=== PATIENT | female | born 1990 | race Caucasian/White ===

== ENCOUNTER 2018-09-01 17:56 | Emergency (ER) | payer OTHER ==
[~2018-09-01] VITALS: Ht 167.6 cm; Wt 94.2 kg
[2018-09-01 17:59] VITALS: Ht 167.6 cm; Wt 94.2 kg
[2018-09-01] MEDS ORDERED: SOD CHLORIDE 0.9% 1,000 ML IV STA (20:08)
[2018-09-01] MEDS ORDERED: morphine 4 MG/ML VIAL IV STA (20:08)
[2018-09-01] MEDS ORDERED: ONDANSETRON 4 MG INJ IV STA (20:08)
[2018-09-01] MEDS ORDERED: FAMOTIDINE 20 MG INJ IV ONE (20:30)
[2018-09-02] MEDS ORDERED: ONDA4TAB14 PO (00:12)
[2018-09-02] MEDS ORDERED: HYDR-4011 PO (00:12)
[2018-09-02] MEDS ORDERED: FAMO-96 PO (00:12)
[2018-09-02] MEDS ORDERED: CEPH-443 PO (00:12)
[2018-09-02 00:45] VITALS: BP 117/76; PULSE 70; RESP 19
--- NOTE | 2018-09-02 04:27 | ERD ---
ER Documentation Chief Complaint Chief Complaint Complains of nausea with vomiting x 4 days HPI 27-year-old female patient with no significant past medical history presents to ED complaining of nausea, vomiting, right lower quadrant abdominal pain. Patient reports that her last menstruation was on August 27, 2018, however this is questionable since patient is currently , she believes that it may have been bleeding in her . Denies any fever, chills, nausea, vomiting, diarrhea, neck stiffness. ROS All systems reviewed and are negative except as per history of present illness. Medications Home Meds Active Scripts Cephalexin* (Keflex*) 500 Mg Capsule, 500 MG PO QID for 7 Days, CAP Prov:JANETTE OLIVERA PA-C 09/02/18 Ondansetron (Ondansetron Odt) 4 Mg Tab.rapdis, 4 MG PO Q6H PRN for NAUSEA AND/OR VOMITING, #10 TAB Prov:JANETTE OLIVERA PA-C 09/02/18 Hydrocodone/Acetaminophen ([place] 5-325 Tablet) 1 Each Tablet, 1 TAB PO Q6H PRN for PAIN, #7 TAB Prov:JANETTE OLIVERA PA-C 09/02/18 Famotidine* (Pepcid*) 20 Mg Tablet, 20 MG PO BID, #20 TAB Prov:JANETTE OLIVERA PA-C 09/02/18 Allergies Allergies: Coded Allergies: No Known Allergy (Unverified , 09/01/18) PMhx/Soc Medical and Surgical Hx: pt denies Medical Hx, pt denies Surgical Hx Hx Alcohol Use: Yes (socially) Hx Substance Use: Yes (marijuana socially) Hx Tobacco Use: No Smoking Status: Former smoker Physical Exam Vitals Vital Signs Date Temp Pulse Resp B/P (MAP) Pulse Ox O2 O2 Flow FiO2 Time Delivery Rate 09/02/18 98.1 70 19 117/76 98 Room Air 00:45 (90) 09/01/18 98.5 91 20 128/84 100 17:59 (99) Physical Exam Const: Aec-[id number]-bekoyqzht, well-nourished. In no acute distress. Head: Atraumatic, normocephalic Eyes: Normal Conjunctiva without injection. No purulent discharge. ENT: Normal external ear, nose. Moist oropharynx without tonsillar exudates. Non-erythematous pharynx. Uvula midline. No drooling. No trismus. Neck: No cervical midline tenderness. Full range of motion. No meningismus. No cervical lymphadenopathy. No JVD. Resp: Clear to auscultation bilaterally. No wheezing, rhonchi, rales, or crackles. No accessory muscle use. No retractions. Cardio: Regular rate and rhythm. No murmurs, rubs or gallops. Abd: Soft, right upper quadrant abdominal tenderness, non distended. Normal bowel sounds. No palpable masses. No rebound tenderness. No guarding. Negative McBurney's point. Negative psoas sign. Negative obturator sign. Skin: No petechiae or rashes Back: No midline tenderness. No CVA tenderness. Ext: No cyanosis, or edema Neur: Awake and alert. Normal gait. Normal coordination. Psych: Normal Mood and Affect Result Diagram: 09/01/18204509/01/182314 Results 24 hrs Laboratory Tests Test 09/01/18 20:19 09/01/18 20:20 09/01/18 20:46 09/01/18 23:15 POC Beta HCG, NEGATIVE Qualitative Urine Color YELLOW Urine Clarity CLOUDY Urine pH 7.0 Urine Specific 1.017 [place] Urine Ketones 1+ mg/dL Urine Nitrite NEGATIVE mg/dL Urine Bilirubin NEGATIVE mg/dL Urine NEGATIVE mg/dL Urobilinogen Urine Leukocyte 3+ Sobeida/ul Esterase Urine 2 /HPF Microscopic RBC Urine 2 /HPF Microscopic WBC Urine Squamous MANY /HPF Epithelial Cell s Urine Bacteria FEW /HPF Urine Mucus FEW /HPF Urine 2+ mg/dL Hemoglobin Urine Glucose NEGATIVE mg/dL Urine Total NEGATIVE mg/dl Protein White Blood 10.6 10^3/ul Count Red Blood Count 4.47 10^6/ul Hemoglobin 14.1 g/dl Hematocrit 42.6 % Mean 95.3 fl Corpuscular Volume Mean 31.5 pg Corpuscular Hemoglobin Mean 33.1 g/dl Corpuscular Hemoglobin Conc ent Red Cell 13.5 % Distribution Width Platelet Count 377 10^3/UL Mean Platelet 8.9 fl Volume Immature 0.800 % Granulocytes % Neutrophils % 73.1 % Lymphocytes % 17.9 % Monocytes % 6.3 % Eosinophils % 1.1 % Basophils % 0.8 % Nucleated Red 0.0 /100WBC Blood Cells % Immature 0.080 10^3/ul Granulocytes # Neutrophils # 7.7 10^3/ul Lymphocytes # 1.9 10^3/ul Monocytes # 0.7 10^3/ul Eosinophils # 0.1 10^3/ul Basophils # 0.1 10^3/ul Nucleated Red 0.0 10^3/ul Blood Cells # Sodium Level 140 mmol/L Potassium Level 4.7 mmol/L Chloride Level 103 mmol/L Carbon Dioxide 27 mmol/L Level Anion Gap 10 Blood Urea 7 mg/dl Nitrogen Creatinine 0.50 mg/dl Est Glomerular > 60 mL/min Filtrat Rate mL/min Glucose Level 88 mg/dl Calcium Level 8.3 mg/dl Total Bilirubin 0.3 mg/dl Direct 0.00 mg/dl Bilirubin Indirect 0.3 mg/dl Bilirubin Aspartate Amino 19 IU/L Transf (AST/SGO T) Alanine 24 IU/L Aminotransferas e (ALT/SGPT) Alkaline 63 IU/L Phosphatase Total Protein 6.8 g/dl Albumin 3.8 g/dl Globulin 3.00 g/dl Albumin/Globuli 1.26 n Ratio Lipase 58 U/L Current Medications Medications Dose Sig/Michael Start Time Status Last (Trade) Ordered Route PRN Stop Time Admin Dose Reason Admin Sodium 1,000 ml @ Q1H STAT 09/01/18 DC 09/01/18 Chloride 1,000 mls/hr IV 20:08 20:30 09/01/18 21:07 Morphine 4 mg ONCE STAT 09/01/18 DC 09/01/18 Sulfate IV 20:08 20:30 (morphine) 09/01/18 20:10 Ondansetron 4 mg ONCE STAT 09/01/18 DC 09/01/18 HCl (Zofran IV 20:08 20:29 Inj) 09/01/18 20:10 Famotidine 20 mg ONCE ONCE 09/01/18 DC 09/01/18 (Pepcid Iv) IV 20:30 20:30 09/01/18 20:31 Procedures/MDM 27-year-old female patient with no significant past medical history presents the ED complaining of nausea, vomiting that started 4 days ago. Patient is afebrile and nontoxic-appearing. Patient was further worked up with CBC, CMP, lipase, UA, urine , gallbladder ultrasound. Patient's pain and symptoms have improved after treatment with 1 L of saline, 20 mg IV famotidine, 4 mg IV Zofran, 4 mg IV morphine. CBC: No leukocytosis. No e/o of systemic infection. No e/o anemia. CMP: No e/o severe acidosis, alkalosis, renal failure, diabetic ketoacidosis, liver disease Lipase within normal limits. Urine: 3+ leukocyte esterase, no nitrites, 2+ hematuria. Urine : Negative PROCEDURE: US Abdomen Limited. CLINICAL INDICATION: Abdominal pain TECHNIQUE: Multiple real-time images were acquired of the patient's gallbladder utilizing a high resolution transducer. COMPARISON: None FINDINGS: Liver: Normal in size measuring 13.6 cm. Normal echogenicity. No focal lesions. Gallbladder: Multiple intraluminal gallstones with posterior acoustic shadowing. No pericholecystic fluid. No wall thickening. Biliary tract: No intra- or extrahepatic ductal dilation. The common bile duct measures 4 mm in maximal dimension. Pancreas: Poorly visualized due to excessive bowel gas. Right Kidney: Normal in size measuring 9.8 cm. Normal echogenicity. No dilatation of the pelvicaliceal system. No areas of increased echogenicity to suggest nephrolithiasis. No solid renal mass. Other: No free fluid is identified. IMPRESSION: Cholelithiasis without sonographic evidence of acute cholecystitis. Patient has cholelithiasis. Low suspicion for ectopic , ovarian torsion, gastritis, GERD, peptic ulcer disease, cholecystitis, choled ocholithiasis, cholangitis, pancreatitis, appendicitis, bowel obstruction, ileus, volvulus, nephrolithiasis, pyelonephritis, hepatitis, perforated viscus, diverticulitis, strangulated/incarcerated hernia, DKA, acute abdomen, mesenteric ischemia or other emergent conditions. Diagnosis: Cholelithiasis, Urinary tract infection Discharge medications: [place], famotidine, Zofran, Keflex Follow up with primary care physician in 1-2 days. Instructed patient to return to the ED sooner for any worsening symptoms. Patient's questions were answered. Patient is hemodynamically stable. Patient understood and agreed with discharge plan. Patient discharged stable. Disclaimer: Inadvertent spelling and grammatical errors are likely due to EHR/dictation software use and do not reflect on the overall quality of patient care. Also, please note that the electronic time recorded on this note does not necessarily reflect the actual time of the patient encounter. Departure Diagnosis: Primary Impression: Cholelithiasis Cholelithiasis location: gallbladder Cholecystitis presence: without cholecystitis Biliary obstruction: without biliary obstruction Qualified Codes: K80.20 - Calculus of gallbladder without cholecystitis without obstruction Additional Impression: Urinary tract infection Urinary tract infection type: site unspecified Hematuria presence: with hematuria Qualified Codes: N39.0 - Urinary tract infection, site not specified; R31.9 - Hematuria, unspecified Condition: Stable Patient Instructions: Urinary Tract Infections in Women, Gallstones Referrals: [facility] YOU HAVE RECEIVED A MEDICAL SCREENING EXAM AND THE RESULTS INDICATE THAT YOU DO NOT HAVE A CONDITION THAT REQUIRES URGENT TREATMENT IN THE EMERGENCY DEPARTMENT. FURTHER EVALUATION AND TREATMENT OF YOUR CONDITION CAN WAIT UNTIL YOU ARE SEEN IN YOUR DOCTORS OFFICE WITHIN THE NEXT 1-2 DAYS. IT IS YOUR RESPONSIBILITY TO MAKE AN APPOINTMENT FOR FOLOW-UP CARE. IF YOU HAVE A PRIMARY DOCTOR --you should call your primary doctor and schedule an appointment IF YOU DO NOT HAVE A PRIMARY DOCTOR YOU CAN CALL OUR PHYSICIAN REFERRAL HOTLINE AT IF YOU CAN NOT AFFORD TO SEE A PHYSICIAN YOU CAN CHOSE FROM THE FOLLOWING [facility] [address] [facility] [address] [facility] [facility] [address] [facility] [address] [facility] [address] [facility]. [facility]. [address] [facility] [facility] YOU HAVE RECEIVED A MEDICAL SCREENING EXAM AND THE RESULTS INDICATE THAT YOU DO NOT HAVE A CONDITION THAT REQUIRES URGENT TREATMENT IN THE EMERGENCY DEPARTMENT. FURTHER EVALUATION AND TREATMENT OF YOUR CONDITION CAN WAIT UNTIL YOU ARE SEEN IN YOUR DOCTORS OFFICE WITHIN THE NEXT 1-2 DAYS. IT IS YOUR RESPONSIBILITY TO MAKE AN APPOINTMENT FOR FOLOW-UP CARE. IF YOU HAVE A PRIMARY DOCTOR --you should call your primary doctor and schedule and appointment IF YOU DO NOT HAVE A PRIMARY DOCTOR YOU CAN CALL OUR PHYSICIAN REFERRAL HOTLINE AT . IF YOU CAN NOT AFFORD TO SEE A PHYSICIAN YOU CAN CHOSE FROM THE FOLLOWING [facility] INSTITUTIONS: [facility] [address] [place] [address] [facility] [address] [place] [address] [facility] [address] [place] [address] [facility]CIALT[facility] Additional Instructions: Call your primary care doctor TOMORROW for an appointment during the next 2-3 days for a referral to see a general surgeon.See the doctor sooner or return here if your condition worsens before your appointment time. You have been given a medicine which may cause drowsiness.DO NOT DRIVE OR OPERATE DANGEROUS MACHINERY while taking this medicine! JANETTE OLIVERA PA-C Sep 02, 2018 04:27
== END 2018-09-02 00:47 | disposition home or self-care (01) ==
LOC: FTE 17:56
DX: K80.20 Calculus of gallbladder without cholecystitis without obstruction (principal); N39.0 Urinary tract infection, site not specified
CPT/HCPCS: 76705; 80053; 81001; 81025; 83690; 85025; 96361; 96374; 96375; J2270; J2405; J7030; Z7502; Z7610

== ENCOUNTER 2018-09-09 13:26 | Inpatient (IN) | payer OTHER ==
[~2018-09-09] VITALS: Ht 152.4 cm; Wt 89.5 kg
[~2018-09-09 13:26] MED LIST: CEPH-443 PO; FAMO-96 PO; HYDR-4011 PO; ONDA4TAB14 PO
[2018-09-09] MEDS ORDERED: ONDANSETRON 4 MG INJ IV STA (13:53)
[2018-09-09] MEDS ORDERED: SOD CHLORIDE 0.9% 1,000 ML IV STA (13:53)
[2018-09-09] MEDS ORDERED: HYDROmorphONE 1 MG/ML SYG IV STA (13:53)
--- NOTE | 2018-09-09 13:54 | ERD ---
ER Documentation Chief Complaint Chief Complaint bib self, cc: abd. pain from recent dx of gallbladder stones, n/v sincemorn HPI 27-year-old female, recently diagnosed with gallstones, presents to the emergency department, complaining of 6 hours with sudden onset of right upper quadrant abdominal pain, dull, constant, 8/10, associated with nausea and vomiting. The patient had a heavy fatty meal last night. She currently, denies fevers, no chills, no diarrhea or constipation. ROS All systems reviewed and are negative except as per history of present illness. Medications Home Meds Active Scripts Cephalexin* (Keflex*) 500 Mg Capsule, 500 MG PO QID for 7 Days, CAP Prov:JANETTE OLIVERA PA-C 09/02/18 Ondansetron (Ondansetron Odt) 4 Mg Tab.rapdis, 4 MG PO Q6H PRN for NAUSEA AND/OR VOMITING, #10 TAB Prov:JANETTE OLIVERA PA-C 09/02/18 Hydrocodone/Acetaminophen ([place] 5-325 Tablet) 1 Each Tablet, 1 TAB PO Q6H PRN for PAIN, #7 TAB Prov:JANETTE OLIVERA PA-C 09/02/18 Famotidine* (Pepcid*) 20 Mg Tablet, 20 MG PO BID, #20 TAB Prov:JANETTE OLIVERA PA-C 09/02/18 Allergies Allergies: Coded Allergies: No Known Allergy (Unverified , 09/01/18) PMhx/Soc Hx Alcohol Use: Yes (socially) Hx Substance Use: Yes (marijuana socially) Hx Tobacco Use: No Physical Exam Vitals Vital Signs Date Temp Pulse Resp B/P (MAP) Pulse Ox O2 O2 Flow FiO2 Time Delivery Rate 09/09/18 98.3 104 19 139/86 100 13:42 (103) Physical Exam Const: Moderate distress due to pain, vital signs stable. Head: Atraumatic Eyes: Normal Conjunctiva ENT: Normal External Ears, Nose and Mouth. Neck: Full range of motion. No meningismus. Resp: Clear to auscultation bilaterally Cardio: Regular rate and rhythm, no murmurs Abd: Soft, non tender, non distended. Normal bowel sounds Skin: No petechiae or rashes Back: No midline or flank tenderness Ext: No cyanosis, or edema Neur: Awake and alert Psych: Normal Mood and Affect Result Diagram: 09/09/18 1420 09/09/18 1420 Results 24 hrs Laboratory Tests Test 09/09/18 14:20 09/09/18 16:52 White Blood Count 11.6 10^3/ul Red Blood Count 4.32 10^6/ul Hemoglobin 13.6 g/dl Hematocrit 41.4 % Mean Corpuscular Volume 95.8 fl Mean Corpuscular Hemoglobin 31.5 pg Mean Corpuscular Hemoglobin Concent 32.9 g/dl Red Cell Distribution Width 13.6 % Platelet Count 373 10^3/UL Mean Platelet Volume 9.0 fl Immature Granulocytes % 0.600 % Neutrophils % 81.4 % Lymphocytes % 12.6 % Monocytes % 3.7 % Eosinophils % 1.0 % Basophils % 0.7 % Nucleated Red Blood Cells % 0.0 /100WBC Immature Granulocytes # 0.070 10^3/ul Neutrophils # 9.4 10^3/ul Lymphocytes # 1.5 10^3/ul Monocytes # 0.4 10^3/ul Eosinophils # 0.1 10^3/ul Basophils # 0.1 10^3/ul Nucleated Red Blood Cells # 0.0 10^3/ul Urine Color YELLOW Urine Clarity CLOUDY Urine pH 8.0 Urine Specific [place] 1.021 Urine Ketones NEGATIVE mg/dL Urine Nitrite NEGATIVE mg/dL Urine Bilirubin NEGATIVE mg/dL Urine Urobilinogen NEGATIVE mg/dL Urine Leukocyte Esterase 1+ Sobeida/ul Urine Microscopic RBC 7 /HPF Urine Microscopic WBC 12 /HPF Urine Squamous Epithelial Cells FEW /HPF Urine Bacteria FEW /HPF Urine Mucus FEW /HPF Urine Hemoglobin NEGATIVE mg/dL Urine Glucose NEGATIVE mg/dL Urine Total Protein NEGATIVE mg/dl Sodium Level 141 mmol/L Potassium Level 3.7 mmol/L Chloride Level 101 mmol/L Carbon Dioxide Level 29 mmol/L Anion Gap 11 Blood Urea Nitrogen 9 mg/dl Creatinine 0.55 mg/dl Est Glomerular Filtrat Rate mL/min > 60 mL/min Glucose Level 104 mg/dl Calcium Level 9.1 mg/dl Total Bilirubin 0.2 mg/dl Direct Bilirubin 0.00 mg/dl Indirect Bilirubin 0.2 mg/dl Aspartate Amino Transf (AST/SGOT) 21 IU/L Alanine Aminotransferase (ALT/SGPT) 20 IU/L Alkaline Phosphatase 78 IU/L Total Protein 8.2 g/dl Albumin 4.4 g/dl Globulin 3.80 g/dl Albumin/Globulin Ratio 1.15 Lipase 87 U/L POC Beta HCG, Qualitative NEGATIVE Current Medications Medications Dose Sig/Michael Start Time Status Last (Trade) Ordered Route PRN Stop Time Admin Dose Reason Admin Sodium 1,000 ml @ Q1H STAT 09/09/18 DC 09/09/18 Chloride 1,000 mls/hr IV 13:53 09/09/18 14:22 14:52 1 mg ONCE STAT 09/09/18 DC 09/09/18 Hydromorphone IV 13:53 09/09/18 14:24 HCl 13:58 (Dilaudid) Ondansetron 4 mg ONCE STAT 09/09/18 DC 09/09/18 HCl (Zofran IV 13:53 09/09/18 14:23 Inj) 13:58 Ceftriaxone 50 ml @ ONCE ONCE 09/09/18 DC Sodium 100 mls/hr IVPB 16:30 09/09/18 17:21 Piperacillin 100 ml @ ONCE ONCE 09/09/18 DC 09/09/18 Sod/ 200 mls/hr IVPB 16:30 09/09/18 17:03 Tazobactam 16:59 Sod Ketorolac 15 mg ONCE STAT 09/09/18 DC 09/09/18 Tromethamine IV 16:30 09/09/18 17:03 (Toradol) 16:45 Ondansetron 4 mg BRIDGE ORDER 09/09/18 HCl (Zofran PRN IV 17:30 09/10/18 Inj) NAUSEA AND/OR 17:29 VOMITING 650 mg ER BRIDGE 09/09/18 Acetaminophen PRN PO MILD 17:30 09/10/18 (Tylenol PAIN(1-3)OR 17:29 Tab) ELEVATED TEMP Procedures/MDM Vital signs stable. Differential diagnosis include but not limited to: UTI, colitis, gastroenteritis, kidney stones, irritable bowel syndrome, inflammatory bowel syndrome, malabsorption syndrome, cholelithiasis, food intolerance, medication side effect, pancreatitis, diverticulitis, bowel obstruction. Physical examination and clinical presentation consistent most likely with acute cholecystitis. During the ED course the patient remained afebrile but with persistent right upper quadrant abdominal pain. The patient received treatment with IV fluids and IV medications. At this time, I consider that the patient will benefit from inpatient management, Dr. G.Rahi was consulted for admission with a surgical consult for Dr. Cheung. Results and clinical impression discussed with the patient who agrees with management. Medical decision making shared with patient and family. The patient is stable to be admitted to med-surg. Instructions explained and given directly by me to the patient with acknowledgment and demonstrated understanding. Disclaimer: Inadvertent spelling and grammatical errors are likely due to EHR/dictation software use and do not reflect on the overall quality of patient care. Also, please note that the electronic time recorded on this note does not necessarily reflect the actual time of the patient encounter. Departure Diagnosis: Primary Impression: Acute cholecystitis Condition: Stable LUPE NGO MD Sep 09, 2018 13:54
[2018-09-09] MEDS ORDERED: CEFTRIAXONE 1 GM/50 ML (PMX) 50 ML IVPB ONE (16:30)
[2018-09-09] MEDS ORDERED: PIPER-TAZO 3.375 GM IV (PMX) 100 ML IVPB ONE (16:30)
[2018-09-09] MEDS ORDERED: KETOROLAC 15 MG INJ IV STA (16:30)
[2018-09-09] MEDS ORDERED: ACETAMINOPHEN 325 MG TAB PO PRN ×2 (17:30→18:00)
[2018-09-09] MEDS ORDERED: ONDANSETRON 4 MG INJ IV PRN (17:30)
[2018-09-09] MEDS ORDERED: MAGNESIUM HYDROXIDE 30ML CUP PO PRN (18:00)
[2018-09-09] MEDS ORDERED: DOCUSATE SODIUM 100 MG CAP PO PRN (18:00)
[2018-09-09] MEDS ORDERED: ALBUTEROL/IPRATROPIUM (NEB) 3 ML AMP HHN PRN (18:00)
[2018-09-09] MEDS ORDERED: hydrALAzine 20 MG INJ IV PRN (18:00)
[2018-09-09] MEDS ORDERED: NITROGLYCERIN (SL) 0.4 MG TAB SL PRN (18:00)
[2018-09-09] MEDS ORDERED: morphine 2 MG INJ IV PRN (18:00)
[2018-09-09] MEDS ORDERED: NACL 0.9% 3 ML SYG IV SCH (18:00)
[2018-09-09] MEDS ORDERED: LORAZEPAM 2 MG INJ IV PRN (18:00)
[2018-09-09 18:40] VITALS: Ht 152.4 cm; Wt 89.5 kg
--- NOTE | 2018-09-09 19:03 | HP ---
DATE OF ADMISSION: 09/09/2018 IDENTIFICATION: This is a 27-year-old female. CHIEF COMPLAINT: Abdominal pain, nausea, vomiting. HISTORY OF PRESENT ILLNESS: A 27-year-old female who was recently diagnosed with gallstones who come s in with right upper quadrant pain. She describes it as 8/10 in intensity. She has also had some n onbilious, nonbloody vomiting and some nausea symptoms as well. No fevers or chills. No upper or lo wer GI bleeding. No diarrhea or constipation. No headaches or shortness of breath. The patient cam e to the ER a few days ago for similar symptoms and at that time was diagnosed with gallstones, but n o evidence of acute cholecystitis and was sent home with appropriate medications, but again the patie nt's symptoms became worse in the last 1 day and she decided to come back. When she came in today, s he had another gallbladder ultrasound performed this time that shows cholelithiasis with borderline p rominent gallbladder wall thickness and a call was made out to the general surgeon to come see the eusebio frank. PAST MEDICAL HISTORY: As stated above. ALLERGIES: NO KNOWN DRUG ALLERGIES. HOME MEDICATIONS: 1. Keflex 500 mg q.i.d. 2. [place] 5/325 q.6 p.r.n. 3. Pepcid 20 mg b.i.d. 4. Zofran 4 mg q.6 p.r.n. PAST SURGICAL HISTORY: None. SOCIAL HISTORY: Drinks alcohol occasionally and smokes marijuana occasionally. PHYSICAL EXAMINATION: VITAL SIGNS: Today, T-max 98.3, pulse 104, respirations 19, blood pressure 139/86, satting at 100% r oom air. GENERAL: The patient is lying in bed in mild distress. Family members at the bedside. HEENT: Pupils are equal, round, react to light. Extraocular muscles are intact. NECK: Supple. No thyromegaly. LUNGS: Clear to auscultation bilaterally. CARDIOVASCULAR: S1, S2 heard. No rubs or gallops. ABDOMEN: Mild tenderness to palpation right epigastric area; otherwise no rebound or guarding. Norm al bowel sounds, nondistended. MUSCULOSKELETAL: No lower extremity edema bilaterally. NEUROLOGIC: No focal deficits. LABORATORIES: WBC 11.6, hemoglobin 13.6, hematocrit 41.4, platelets 373. Sodium 141, potassium 3.7, chloride 101, CO2 of 29, BUN 9, creatinine 0.55, glucose 104. UA shows 1+ leukocyte esterase positi ve. The comprehensive metabolic panel is essentially normal. Lipase is normal. Coags are normal. IMAGING: We mentioned imaging report. ASSESSMENT AND PLAN: A 27-year-old female who comes in with a right upper quadrant pain, signs of bi liary colic versus acute cholecystitis with findings of gallstones. 1. Right upper quadrant pain again likely secondary to what is most likely acute cholecystitis biliary colic with gallstones. Admit the patient. Check TSH, A1c, lipid panel. Get a surgery cons ult. Follow up their recommendations. Keep patient n.p.o. and give IV fluids, antiemetic medication s. 2. Mild urinary tract infection. Put her on Rocephin. Follow up final culture results. 3. Gastrointestinal prophylaxis. H2 jack. 4. Deep venous thrombosis prophylaxis, heparin subcutaneously. Dictated By: JOSESITO CAMPBELL/BETSY Conf#: [id number] DID#: [id number] CC: WANG BERNAL MD;*EndCC*
[2018-09-09] MEDS: SOD CHLORIDE 0.9% 1,000 ML IV SCH (19:05)
[2018-09-09 20:04] VITALS: BP 127/79; PULSE 69; RESP 16
[2018-09-09] MEDS: FAMOTIDINE 20 MG TAB PO SCH (20:20)
[2018-09-09] MEDS: HEPARIN 5,000 UNIT/1 ML VIAL SC SCH (20:23)
[2018-09-09] MEDS: CEFTRIAXONE 1 GM/50 ML (PMX) 50 ML IVPB SCH (20:24)
[2018-09-09] MEDS: morphine SULFATE/PF (2 MG/2 ML) SYG IV PRN (23:19)
[2018-09-09] MEDS: ONDANSETRON 4 MG INJ IV PRN (23:30)
[2018-09-10] VITALS (23 sets, daily range): BP systolic 107–148; BP diastolic 65–88; PULSE 73–96; RESP 14–20
[2018-09-10] MEDS: HYDROCODONE/APAP (5/325) TAB PO PRN ×4 (01:45→22:30)
--- NOTE | 2018-09-10 02:50 | CONS ---
Date/Time of Note Date/Time of Note DATE: 09/10/18 TIME: 02:46 Assessment/Plan Assessment/Plan Assessment/Plan 28-year-old female presents with crescendo attacks and worsening right upper quadrant pain epigastric pain consistent with acute and chronic cholecystitis with multiple gallstones noted on ultrasound LFTs normal. I recommended to the patient that she undergo laparoscopic cholecystectomy before discharge that she has had now 2 admissions to evaluations in the emergency room and hospital in the last week and feel that she is at increased risk for developing worsening problems i.e. also pancreatitis obstructive jaundice cholangitis Patient is agreeable to proceed we will schedule for surgery for tomorrow Result Diagram: 09/09/18 1420 09/09/18 1420 Results 24hrs Laboratory Tests Test 09/09/18 14:20 09/09/18 16:52 White Blood Count 11.6 H Red Blood Count 4.32 Hemoglobin 13.6 Hematocrit 41.4 Mean Corpuscular Volume 95.8 Mean Corpuscular Hemoglobin 31.5 Mean Corpuscular Hemoglobin Concent 32.9 Red Cell Distribution Width 13.6 Platelet Count 373 Mean Platelet Volume 9.0 Immature Granulocytes % 0.600 H Neutrophils % 81.4 H Lymphocytes % 12.6 L Monocytes % 3.7 Eosinophils % 1.0 Basophils % 0.7 Nucleated Red Blood Cells % 0.0 Immature Granulocytes # 0.070 H Neutrophils # 9.4 H Lymphocytes # 1.5 Monocytes # 0.4 Eosinophils # 0.1 Basophils # 0.1 Nucleated Red Blood Cells # 0.0 Prothrombin Time 12.2 Prothrombin Time Ratio 1.0 INR International Normalized Ratio 0.89 Activated Partial Thromboplast Time 29.1 Urine Color YELLOW Urine Clarity CLOUDY A Urine pH 8.0 Urine Specific [place] 1.021 Urine Ketones NEGATIVE Urine Nitrite NEGATIVE Urine Bilirubin NEGATIVE Urine Urobilinogen NEGATIVE Urine Leukocyte Esterase 1+ H Urine Microscopic RBC 7 H Urine Microscopic WBC 12 H Urine Squamous Epithelial Cells FEW Urine Bacteria FEW A Urine Mucus FEW A Urine Hemoglobin NEGATIVE Urine Glucose NEGATIVE Urine Total Protein NEGATIVE Sodium Level 141 Potassium Level 3.7 Chloride Level 101 Carbon Dioxide Level 29 Anion Gap 11 Blood Urea Nitrogen 9 Creatinine 0.55 Est Glomerular Filtrat Rate mL/min > 60 Glucose Level 104 Calcium Level 9.1 Total Bilirubin 0.2 Direct Bilirubin 0.00 Indirect Bilirubin 0.2 Aspartate Amino Transf (AST/SGOT) 21 Alanine Aminotransferase (ALT/SGPT) 20 Alkaline Phosphatase 78 Total Protein 8.2 H Albumin 4.4 Globulin 3.80 H Albumin/Globulin Ratio 1.15 Lipase 87 Free Thyroxine 0.97 POC Beta HCG, Qualitative NEGATIVE Consultation Date/Type/Reason Admit Date/Time Sep 09, 2018 at 17:32 Date of Consultation: Sep 10, 2018 Type of Consult General surgery consultation Reason for Consultation Abdominal pain right upper quadrant crescendo attacks over the last couple of months consistent with acute cholecystitis Hx of Present Illness Patient 27-year-old female who describes initially having pain in the right upper quadrant epigastrium after Thanksgiving where she had severe dyspepsia nausea vomiting which lasted a few days and then resolved. Since that time she has had 2-3 more attacks very stereotypic and brought on by fatty food. Patient was seen in the emergency room 1 week ago but discharge told that she had gallstones and that she should seek medical attention for surgical evaluation if this recurred. Ultrasound shows multiple gallstones moderate thickening of the gallbladder without evidence of common duct obstruction Past Medical History Medications Current Medications IV Flush (NS 3 ml) 3 ml PER PROTOCOL IV ; Start 09/09/18 at 18:00 Ondansetron HCl (Zofran Inj) 4 mg Q6H PRN IV NAUSEA AND/OR VOMITING Last administered on 09/09/18at 23:30; Admin Dose 4 MG; Start 09/09/18 at 18:00 Acetaminophen (Tylenol Tab) 650 mg Q6H PRN PO PAIN LEVEL 1-3 OR FEVER; Start 09/09/18 at 18:00 Acetaminophen/ Hydrocodone Bitart ([place] (5/325)) 1 tab Q6H PRN PO MODERATE PAIN LEVEL 4-6 Last administered on 09/10/18at 01:45; Admin Dose 1 TAB; Start 09/09/18 at 18:00 Docusate Sodium (Colace) 100 mg Q12H PRN PO CONSTIPATION; Start 09/09/18 at 18:00 Magnesium Hydroxide (Milk Of Mag) 30 ml DAILY PRN PO CONSTIPATION; Start 09/09/18 at 18:00 Heparin Sodium (Porcine) (Heparin (5000 Units/1ml)) 5,000 unit Q12 SC Last administered on 09/09/18at 20:23; Admin Dose 5,000 UNIT; Start 09/09/18 at 21:00 Lorazepam (Ativan) 0.5 mg Q6H PRN IV ANXIETY; Start 09/09/18 at 18:00 Sodium Chloride 1,000 ml @ 100 mls/hr Q10H IV Last administered on 09/09/18at 19:05; Admin Dose 100 MLS/HR; Start 09/09/18 at 17:42 Albuterol/ Ipratropium (Duoneb) 3 ml Q4H RESP THERAPY PRN HHN SHORTNESS OF BREATH; Start 09/09/18 at 18:00 Hydralazine HCl (Apresoline) 10 mg Q6H PRN IV ELEVATED BLOOD PRESSURE; Start 09/09/18 at 18:00 Nitroglycerin (Nitroglycerin (Sl Tab) 0.4 Mg) 1 tab Q5M PRN SL ANGINA; Start 09/09/18 at 18:00 Famotidine (Pepcid) 20 mg BID PO Last administered on 09/09/18at 20:20; Admin Dose 20 MG; Start 09/09/18 at 21:00 Ceftriaxone Sodium 50 ml @ 100 mls/hr Q24H IVPB Last administered on 09/09/18at 20:24; Admin Dose 100 MLS/HR; Start 09/09/18 at 19:00 Morphine Sulfate (morphine SULFATE (PF)) 2 mg Q4H PRN IV SEVERE PAIN LEVEL 7-10 Last administered on 09/09/18at 23:19; Admin Dose 2 MG; Start 09/09/18 at 23:00 Allergies: Coded Allergies: No Known Allergy (Unverified , 09/01/18) Social History Smoking Status: Former smoker Exam/Review of Systems Vital Signs Vitals Vital Signs Date Temp Pulse Resp B/P (MAP) Pulse Ox O2 O2 Flow FiO2 Time Delivery Rate 09/10/18 98.9 73 16 113/65 99 01:41 (81) 09/09/18 Room Air 17:59 Intake and Output 09/09/18 09/09/18 09/10/18 1515:00 23:00 07:00 IntakeIntake Total 1100 ml 30 ml OutputOutput Total 100 ml BalanceBalance 1100 ml -70 ml Exam Awake alert oriented x3 HEENT pupils equal react light sclerae anicteric. Lungs clear to auscultation. Heart regular rate and rhythm without murmurs rubs. Abdomen is soft nondistended with moderate tenderness to palpation right upper quadrant greater than left. Medications Medications Current Medications IV Flush (NS 3 ml) 3 ml PER PROTOCOL IV ; Start 09/09/18 at 18:00 Ondansetron HCl (Zofran Inj) 4 mg Q6H PRN IV NAUSEA AND/OR VOMITING Last administered on 09/09/18at 23:30; Admin Dose 4 MG; Start 09/09/18 at 18:00 Acetaminophen (Tylenol Tab) 650 mg Q6H PRN PO PAIN LEVEL 1-3 OR FEVER; Start 09/09/18 at 18:00 Acetaminophen/ Hydrocodone Bitart ([place] (5/325)) 1 tab Q6H PRN PO MODERATE PAIN LEVEL 4-6 Last administered on 09/10/18at 01:45; Admin Dose 1 TAB; Start 09/09/18 at 18:00 Docusate Sodium (Colace) 100 mg Q12H PRN PO CONSTIPATION; Start 09/09/18 at 18:00 Magnesium Hydroxide (Milk Of Mag) 30 ml DAILY PRN PO CONSTIPATION; Start 09/09/18 at 18:00 Heparin Sodium (Porcine) (Heparin (5000 Units/1ml)) 5,000 unit Q12 SC Last administered on 09/09/18at 20:23; Admin Dose 5,000 UNIT; Start 09/09/18 at 21:00 Lorazepam (Ativan) 0.5 mg Q6H PRN IV ANXIETY; Start 09/09/18 at 18:00 Sodium Chloride 1,000 ml @ 100 mls/hr Q10H IV Last administered on 09/09/18at 19:05; Admin Dose 100 MLS/HR; Start 09/09/18 at 17:42 Albuterol/ Ipratropium (Duoneb) 3 ml Q4H RESP THERAPY PRN HHN SHORTNESS OF BREATH; Start 09/09/18 at 18:00 Hydralazine HCl (Apresoline) 10 mg Q6H PRN IV ELEVATED BLOOD PRESSURE; Start 09/09/18 at 18:00 Nitroglycerin (Nitroglycerin (Sl Tab) 0.4 Mg) 1 tab Q5M PRN SL ANGINA; Start 09/09/18 at 18:00 Famotidine (Pepcid) 20 mg BID PO Last administered on 09/09/18at 20:20; Admin Dose 20 MG; Start 09/09/18 at 21:00 Ceftriaxone Sodium 50 ml @ 100 mls/hr Q24H IVPB Last administered on 09/09/18at 20:24; Admin Dose 100 MLS/HR; Start 09/09/18 at 19:00 Morphine Sulfate (morphine SULFATE (PF)) 2 mg Q4H PRN IV SEVERE PAIN LEVEL 7-10 Last administered on 09/09/18at 23:19; Admin Dose 2 MG; Start 09/09/18 at 23:00 WANG BERNAL MD Sep 10, 2018 02:50
[2018-09-10] MEDS: morphine SULFATE/PF (2 MG/2 ML) SYG IV PRN ×2 (03:08→07:40)
[2018-09-10] MEDS: SOD CHLORIDE 0.9% 1,000 ML IV SCH ×3 (03:42→13:42)
[2018-09-10] MEDS ORDERED: CEFAZOLIN 1 GM INJ ONE (07:00)
[2018-09-10] MEDS ORDERED: DESFLURANE 15 MIN ONE (07:00)
[2018-09-10] MEDS: ONDANSETRON 4 MG INJ IV PRN (07:40)
[2018-09-10] MEDS: FAMOTIDINE 20 MG TAB PO SCH ×2 (09:32→20:28)
[2018-09-10] MEDS: HEPARIN 5,000 UNIT/1 ML VIAL SC SCH ×2 (09:35→20:30)
[2018-09-10] MEDS ORDERED: ROPIVACAINE 0.2% 20 ML VIAL ONE (11:25)
[2018-09-10] MEDS ORDERED: FENTAnyl 50 MCG/ML VIAL ONE ×2 (11:25→12:59)
[2018-09-10] MEDS ORDERED: MIDAZOLAM 1 MG/ML 2 ML INJ ONE (11:25)
[2018-09-10] MEDS ORDERED: PROPOFOL 20 ML ONE (11:25)
[2018-09-10] MEDS ORDERED: ROCURONIUM 50 MG INJ ONE (11:25)
--- NOTE | 2018-09-10 12:11 | PREAC ---
Date/Time of Note Date/Time of Note DATE: 09/10/18 TIME: 12:10 Anesthesia Eval and Record Evaluation Time Pre-Procedure Interview DATE: 09/10/18 TIME: 12:10 Age 27 Sex female NPO: 8 hrs Preoperative diagnosis Cholelithiasis Planned procedure Laparoscopic Cholecystectomy Past Medical History Past Medical History: None Surgery & Anesthesia Issues No known issue Meds Anticoagulation: No Beta Moe within 24 hr: No Reason Beta Moe not given: Pt. not on B-Moe Active Scripts Cephalexin* (Keflex*) 500 Mg Capsule, 500 MG PO QID for 7 Days, CAP Prov:JANETTE OLIVERA PA-C 09/02/18 Ondansetron (Ondansetron Odt) 4 Mg Tab.rapdis, 4 MG PO Q6H PRN for NAUSEA AND/OR VOMITING, #10 TAB Prov:JANETTE OLIVERA PA-C 09/02/18 Hydrocodone/Acetaminophen ([place] 5-325 Tablet) 1 Each Tablet, 1 TAB PO Q6H PRN for PAIN, #7 TAB Prov:JANETTE OLIVERA PA-C 09/02/18 Famotidine* (Pepcid*) 20 Mg Tablet, 20 MG PO BID, #20 TAB Prov:JANETTE OLIVERA PA-C 09/02/18 Current Medications IV Flush (NS 3 ml) 3 ml PER PROTOCOL IV ; Start 09/09/18 at 18:00 Ondansetron HCl (Zofran Inj) 4 mg Q6H PRN IV NAUSEA AND/OR VOMITING Last administered on 09/10/18at 07:40; Admin Dose 4 MG; Start 09/09/18 at 18:00 Acetaminophen (Tylenol Tab) 650 mg Q6H PRN PO PAIN LEVEL 1-3 OR FEVER; Start 09/09/18 at 18:00 Acetaminophen/ Hydrocodone Bitart ([place] (5/325)) 1 tab Q6H PRN PO MODERATE PAIN LEVEL 4-6 Last administered on 09/10/18at 09:32; Admin Dose 1 TAB; Start 09/09/18 at 18:00 Docusate Sodium (Colace) 100 mg Q12H PRN PO CONSTIPATION; Start 09/09/18 at 18:00 Magnesium Hydroxide (Milk Of Mag) 30 ml DAILY PRN PO CONSTIPATION; Start 09/09/18 at 18:00 Heparin Sodium (Porcine) (Heparin (5000 Units/1ml)) 5,000 unit Q12 SC Last administered on 09/10/18at 09:35; Admin Dose 5,000 UNIT; Start 09/09/18 at 21:00 Lorazepam (Ativan) 0.5 mg Q6H PRN IV ANXIETY; Start 09/09/18 at 18:00 Sodium Chloride 1,000 ml @ 100 mls/hr Q10H IV Last administered on 09/10/18at 06:02; Admin Dose 100 MLS/HR; Start 09/09/18 at 17:42 Albuterol/ Ipratropium (Duoneb) 3 ml Q4H RESP THERAPY PRN HHN SHORTNESS OF BREATH; Start 09/09/18 at 18:00 Hydralazine HCl (Apresoline) 10 mg Q6H PRN IV ELEVATED BLOOD PRESSURE; Start 09/09/18 at 18:00 Nitroglycerin (Nitroglycerin (Sl Tab) 0.4 Mg) 1 tab Q5M PRN SL ANGINA; Start 09/09/18 at 18:00 Famotidine (Pepcid) 20 mg BID PO Last administered on 09/10/18at 09:32; Admin Dose 20 MG; Start 09/09/18 at 21:00 Ceftriaxone Sodium 50 ml @ 100 mls/hr Q24H IVPB Last administered on 09/09/18at 20:24; Admin Dose 100 MLS/HR; Start 09/09/18 at 19:00 Morphine Sulfate (morphine SULFATE (PF)) 2 mg Q4H PRN IV SEVERE PAIN LEVEL 7-10 Last administered on 09/10/18at 07:40; Admin Dose 2 MG; Start 09/09/18 at 23:00 Meds reviewed: Yes Allergies Coded Allergies: No Known Allergy (Unverified , 09/01/18) Allergies Reviewed: Yes Labs/Studies Labs Reviewed: Reviewed by anesthesiologist Result Diagram: 09/10/18 0615 09/10/18 0615 Laboratory Tests 09/10/18 06:15 test: Negative Studies: ECG (n/a), CXR (n/a) Pre-procedure Exam Last vitals Vital Signs Date Temp Pulse Resp B/P (MAP) Pulse Ox O2 O2 Flow FiO2 Time Delivery Rate 09/10/18 99.0 79 18 131/85 100 Room Air 07:44 (100) Airway: Adequate mouth opening, Adequate thyromental dist Mallampati: Mallampati II Teeth: Normal Lung: Normal Heart: Normal ASA Physical Status ASA physical status: 2 Emergency: None Planned Anesthetic General/MAC: ETT Nerve block: TAP (bilateral) Planned Pain Management Single shot nerve block, Parenteral pain med Pre-operative Attestations Prior to commencing anesthesia and surgery, the patient was re-evaluated, there was verification of: *The patient's identity *The results of appropriate recent lab work and preoperative vital signs *The above evaluation not changing prior to induction *Anesthetic plan, risk benefits, alternative and complications discussed with patient/family; questions answered; patient/family understands, accepts and wishes to proceed. SUNDAY ABBOTT MD Sep 10, 2018 12:11
[2018-09-10] MEDS ORDERED: BUPIVACAINE 0.5%/EPI (SDV) 30 ML INJ ONE (12:12)
[2018-09-10] MEDS ORDERED: OXYCODONE/ACETAMINOPHEN (5/325) TAB PO PRN (12:30)
[2018-09-10] MEDS ORDERED: ONDANSETRON 4 MG INJ IV PRN ×2 (12:30→14:30)
[2018-09-10] MEDS ORDERED: DIPHENHYDRAMINE 50 MG INJ IV PRN (12:30)
[2018-09-10] MEDS ORDERED: LABETALOL HCL 20MG INJ IV PRN (12:30)
[2018-09-10] MEDS ORDERED: hydrALAzine 20 MG INJ IV PRN (12:30)
[2018-09-10] MEDS ORDERED: HYDROmorphONE 1 MG/5 ML IV SYRINGE IV PRN ×3 (12:30)
[2018-09-10] MEDS ORDERED: EPHEDrine SULFATE 50 MG/5 ML SYG IV PRN (12:30)
[2018-09-10] MEDS ORDERED: FENTAnyl 50 MCG/ML VIAL IV PRN ×3 (12:30)
[2018-09-10] MEDS ORDERED: MEPERIDINE 25 MG INJ IV PRN (12:30)
[2018-09-10] MEDS ORDERED: METOCLOPRAMIDE 10 MG INJ IV PRN (12:30)
--- NOTE | 2018-09-10 12:43 | PN ---
Date/Time of Note Date/Time of Note DATE: 09/10/18 TIME: 12:40 Assessment/Plan VTE Prophylaxis Risk score (from Ns)>0 risk: 1 SCD applied (from Ns): No SCD contraindicated: other Pharmacological prophylaxis: heparin Lines/Catheters IV Catheter Type (from [facility]): Peripheral IV Urinary Cath still in place: No Assessment/Plan Hospital Course S: Patient seen by surgery team yesterday, and presently undergoing cholecystectomy. O: VS - see below PHYSICAL EXAMINATION: - Unable to be performed presently as the patient is off the floor at surgery now ASSESSMENT AND PLAN: 27-year-old female who comes in with a right upper quadrant pain, signs of biliary colic versus acute cholecystitis with findings of gallstones. 1. Right upper quadrant pain - again likely secondary to what is most likely acute cholecystitis. Appreciate surgery recommendations. -Presently getting surgical cholecystectomy, follow-up postop recommendations and recommendations from surgery consult. -Continue IV fluids, antiemetic medications. 2. Mild urinary tract infection -UA was positive. -For now continue Rocephin. Follow up final culture results. 3. Gastrointestinal prophylaxis. H2 jack. 4. Deep venous thrombosis prophylaxis, heparin subcutaneously. Result Diagram: 09/10/18 0615 09/10/18 0615 Results 24hrs Laboratory Tests Test 09/09/18 14:20 09/09/18 16:52 09/10/18 06:15 White Blood Count 11.6 H 12.4 H Red Blood Count 4.32 3.87 L Hemoglobin 13.6 12.2 Hematocrit 41.4 37.3 Mean Corpuscular Volume 95.8 96.4 Mean Corpuscular Hemoglobin 31.5 31.5 Mean Corpuscular Hemoglobin Concent 32.9 32.7 Red Cell Distribution Width 13.6 13.3 Platelet Count 373 299 Mean Platelet Volume 9.0 10.1 Immature Granulocytes % 0.600 H 0.700 H Neutrophils % 81.4 H 73.3 Lymphocytes % 12.6 L 18.9 Monocytes % 3.7 6.0 Eosinophils % 1.0 0.6 Basophils % 0.7 0.5 Nucleated Red Blood Cells % 0.0 0.0 Immature Granulocytes # 0.070 H 0.090 H Neutrophils # 9.4 H 9.1 H Lymphocytes # 1.5 2.4 Monocytes # 0.4 0.7 Eosinophils # 0.1 0.1 Basophils # 0.1 0.1 Nucleated Red Blood Cells # 0.0 0.0 Prothrombin Time 12.2 Prothrombin Time Ratio 1.0 INR International Normalized Ratio 0.89 Activated Partial Thromboplast Time 29.1 Urine Color YELLOW Urine Clarity CLOUDY A Urine pH 8.0 Urine Specific [place] 1.021 Urine Ketones NEGATIVE Urine Nitrite NEGATIVE Urine Bilirubin NEGATIVE Urine Urobilinogen NEGATIVE Urine Leukocyte Esterase 1+ H Urine Microscopic RBC 7 H Urine Microscopic WBC 12 H Urine Squamous Epithelial Cells FEW Urine Bacteria FEW A Urine Mucus FEW A Urine Hemoglobin NEGATIVE Urine Glucose NEGATIVE Urine Total Protein NEGATIVE Sodium Level 141 137 Potassium Level 3.7 4.2 Chloride Level 101 105 Carbon Dioxide Level 29 22 Anion Gap 11 10 Blood Urea Nitrogen 9 5 L Creatinine 0.55 0.45 Est Glomerular Filtrat Rate mL/min > 60 > 60 Glucose Level 104 87 Calcium Level 9.1 8.4 Total Bilirubin 0.2 Direct Bilirubin 0.00 Indirect Bilirubin 0.2 Aspartate Amino Transf (AST/SGOT) 21 Alanine Aminotransferase (ALT/SGPT) 20 Alkaline Phosphatase 78 Total Protein 8.2 H Albumin 4.4 Globulin 3.80 H Albumin/Globulin Ratio 1.15 Lipase 87 Free Thyroxine 0.97 POC Beta HCG, Qualitative NEGATIVE Hemoglobin A1c 5.3 Phosphorus Level 3.2 Magnesium Level 2.1 Triglycerides Level 99 Cholesterol Level 134 LDL Cholesterol, Calculated 67 HDL Cholesterol 47 Cholesterol/HDL Ratio 2.8 Thyroid Stimulating Hormone (TSH) 0.834 Exam/Review of Systems Vital Signs Vitals Vital Signs Date Temp Pulse Resp B/P (MAP) Pulse Ox O2 O2 Flow FiO2 Time Delivery Rate 09/10/18 99.0 79 18 131/85 100 Room Air 07:44 (100) Intake and Output 09/09/18 09/09/18 09/10/18 1515:00 23:00 07:00 IntakeIntake Total 1100 ml 1030 ml OutputOutput Total 100 ml BalanceBalance 1100 ml 930 ml Medications Medications Current Medications IV Flush (NS 3 ml) 3 ml PER PROTOCOL IV ; Start 09/09/18 at 18:00 Ondansetron HCl (Zofran Inj) 4 mg Q6H PRN IV NAUSEA AND/OR VOMITING Last administered on 09/10/18at 07:40; Admin Dose 4 MG; Start 09/09/18 at 18:00 Acetaminophen (Tylenol Tab) 650 mg Q6H PRN PO PAIN LEVEL 1-3 OR FEVER; Start 09/09/18 at 18:00 Acetaminophen/ Hydrocodone Bitart ([place] (5/325)) 1 tab Q6H PRN PO MODERATE PAIN LEVEL 4-6 Last administered on 09/10/18 09:32; Admin Dose 1 TAB; Start 09/09/18 at 18:00 Docusate Sodium (Colace) 100 mg Q12H PRN PO CONSTIPATION; Start 09/09/18 at 18:00 Magnesium Hydroxide (Milk Of Mag) 30 ml DAILY PRN PO CONSTIPATION; Start 09/09/18 at 18:00 Heparin Sodium (Porcine) (Heparin (5000 Units/1ml)) 5,000 unit Q12 SC Last administered on 09/10/18 09:35; Admin Dose 5,000 UNIT; Start 09/09/18 at 21:00 Lorazepam (Ativan) 0.5 mg Q6H PRN IV ANXIETY; Start 09/09/18 at 18:00 Sodium Chloride 1,000 ml @ 100 mls/hr Q10H IV Last administered on 09/10/18 06:02; Admin Dose 100 MLS/HR; Start 09/09/18 at 17:42 Albuterol/ Ipratropium (Duoneb) 3 ml Q4H RESP THERAPY PRN HHN SHORTNESS OF BREATH; Start 09/09/18 at 18:00 Hydralazine HCl (Apresoline) 10 mg Q6H PRN IV ELEVATED BLOOD PRESSURE; Start 09/09/18 at 18:00 Nitroglycerin (Nitroglycerin (Sl Tab) 0.4 Mg) 1 tab Q5M PRN SL ANGINA; Start 09/09/18 at 18:00 Famotidine (Pepcid) 20 mg BID PO Last administered on 09/10/18 09:32; Admin Dose 20 MG; Start 09/09/18 at 21:00 Ceftriaxone Sodium 50 ml @ 100 mls/hr Q24H IVPB Last administered on 09/09/18 20:24; Admin Dose 100 MLS/HR; Start 09/09/18 at 19:00 Morphine Sulfate (morphine SULFATE (PF)) 2 mg Q4H PRN IV SEVERE PAIN LEVEL 7-10 Last administered on 09/10/18 07:40; Admin Dose 2 MG; Start 09/09/18 at 23:00 Hydromorphone HCl (Dilaudid) 0.2 mg PACU PRN IV MILD PAIN LEVEL 1-3; Start 09/10/18 at 12:30; Stop 09/10/18 at 20:00 Hydromorphone HCl (Dilaudid) 0.4 mg PACU PRN IV MODERATE PAIN LEVEL 4-6; Start 09/10/18 at 12:30; Stop 09/10/18 at 20:00 Hydromorphone HCl (Dilaudid) 0.6 mg PACU PRN IV SEVERE PAIN LEVEL 7-10; Start 09/10/18 at 12:30; Stop 09/10/18 at 20:00 Fentanyl (Sublimaze) 25 mcg PACU ORDER PRN IV MILD PAIN LEVEL 1-3; Start 09/10/18 at 12:30; Stop 09/10/18 at 20:00 Fentanyl (Sublimaze) 50 mcg PACU ORDER PRN IV MODERATE PAIN LEVEL 4-6; Start 09/10/18 at 12:30; Stop 09/10/18 at 20:00 Fentanyl (Sublimaze) 75 mcg PACU ORDER PRN IV SEVERE PAIN LEVEL 7-10; Start 09/10/18 at 12:30; Stop 09/10/18 at 20:00 Oxycodone/ Acetaminophen (Percocet (5/ 325)) 1 tab PACU ORDER PRN PO PAIN LEVEL 1-5; Start 09/10/18 at 12:30; Stop 09/10/18 at 20:00 Ondansetron HCl (Zofran Inj) 4 mg PACU ORDER PRN IV NAUSEA AND/OR VOMITING; Start 09/10/18 at 12:30; Stop 09/10/18 at 20:00 Metoclopramide HCl (Reglan) 10 mg PACU ORDER PRN IV NAUSEA AND/OR VOMITING; Start 09/10/18 at 12:30; Stop 09/10/18 at 20:00 Labetalol HCl (Labetalol) 5 mg PACU ORDER PRN IV ELEVATED BLOOD PRESSURE; Start 09/10/18 at 12:30; Stop 09/10/18 at 20:00 Hydralazine HCl (Apresoline) 5 mg PACU ORDER PRN IV ELEVATED BLOOD PRESSURE; Start 09/10/18 at 12:30; Stop 09/10/18 at 20:00 Ephedrine Sulfate 5 mg PACU ORDER PRN IV BLOOD PRESSURE SUPPORT; Start 09/10/18 at 12:30; Stop 09/10/18 at 20:00 Meperidine HCl (Demerol) 25 mg PACU ORDER PRN IV POST OPERATIVE SHIVERING; Start 09/10/18 at 12:30; Stop 09/10/18 at 20:00 Diphenhydramine HCl (Benadryl) 25 mg PACU ORDER PRN IV PRURITUS; Start 09/10/18 at 12:30; Stop 09/10/18 at 20:00 JOSESITO BROOKS Sep 10, 2018 12:43
[2018-09-10] MEDS ORDERED: METOCLOPRAMIDE 10 MG INJ ONE (13:06)
[2018-09-10] MEDS ORDERED: ONDANSETRON 4 MG INJ ONE (13:06)
[2018-09-10] MEDS ORDERED: KETOROLAC 30 MG INJ ONE (13:06)
[2018-09-10] MEDS ORDERED: DEXAMETHASONE 4 MG/ML 5 ML INJ ONE (13:06)
[2018-09-10] MEDS ORDERED: SUGAMMADEX SODIUM 200 MG/2 ML VIAL IV ONE (14:07)
--- NOTE | 2018-09-10 14:16 | OPR ---
Date/Time of Note Date/Time of Note DATE: 09/10/18 TIME: 14:10 Operative Report Free Text/Dictation Operative report laparoscopic cholecystectomy Procedure Date: Sep 10, 2018 Preoperative Diagnosis Cholecystitis and cholelithiasis Postoperative Diagnosis Same Operation/Procedure Performed Laparoscopic cholecystectomy Surgeon Wang Cheung MD see signature line Pelt Shearer None Anesthesia Type: general Anesthesiologist: SUNDAY ABBOTT MD Estimated Blood Loss: minimal Transfusion none Specimen Gallbladder and content Grafts/Implants none Tubes/Drains None Complications none Pt Condition Post Procedure: stable Disposition: PACU Indications Acute cholecystitis cholelithiasis Procedure Description Patient brought to the operating room placed in supine position general administered with endotracheal intubation anesthesiologist performed a tap block prior to surgery. Timeout was completed. Orogastric tube was inserted. Veress needle was inserted at the left upper quadrant Simon's point . Insufflation delivered to maintain pneumoperitoneum of 15 mmHg was reached. Small stab incision was made just above the umbilicus and a 5 mm trocar was inserted under direct visualization with a 35 Bettencourt laparoscope the Veress needle was removed after ensuring that there were no injuries or bleeding. An epigastric 11 mm trocar and 2 right-sided 5 Bettencourt trochars were inserted next. The gallbladder was quite tense and thickened and so a cholecystostomy with a hook cautery and suction irrigation was performed to decompress the gallbladder to facilitate grasping the fundus. A atraumatic grasper was used to grasp the fundus and lifted over the edge of the right lobe of liver for retraction this was kept in place with a self-retaining retractor on the posterior of the bed. Second grasper was applied towards the neck of the gallbladder there was marked thickening and a very contracted shortened neck however with retraction and dissecting off the lymph node of [place] able to identify cystic duct and cystic artery there was a very short segment of cystic artery small hole in the gall bladder side and so to facilitate secure division a RAYA vascular load 35 mm was used with an excellent result. The cystic artery was controlled with 2 clips proximally 1 distally and divided the gallbladder was then elevated and the remaining peritoneum scored with hook cautery and taken off the liver bed. Hemostasis of the liver bed was excellent. A specimen bag was inserted in the epigastric port the gallbladder placed in this and was brought through the wound was markedly thickened and dilated and the fascia had to be enlarged and to facilitate delivery of the specimen. The trocar was then reinserted and inspection and irrigation final hemostasis was accomplished and aspirated until clear. A suture passer device was then used with 2 interrupted 0 Ethibond sutures to close the fascia the pneumoperitoneum was allowed to escape and the remaining trochars were removed skin incision closed with 4-0 Monocryl and skin glue for dressing. Patient was explained the operative brought recovery in stable condition. Counts were correct x2. WANG CHEUNG MD Sep 10, 2018 14:15
--- NOTE | 2018-09-10 14:17 | PAC ---
Date/Time of Note Date/Time of Note DATE: 09/10/18 TIME: 14:17 Post-Anesthesia Notes Post-Anesthesia Note Last documented vital signs Vital Signs Date Temp Pulse Resp B/P (MAP) Pulse Ox O2 O2 Flow FiO2 Time Delivery Rate 09/10/18 99.0 79 18 131/85 100 Room Air 14:14 (100) Activity: WNL Respiratory function: WNL Cardiovascular function: WNL Mental status: Baseline Pain reasonably controlled: Yes Hydration appropriate: Yes Nausea/Vomiting absent: Yes SUNDAY ABBOTT MD Sep 10, 2018 14:17
[2018-09-10] MEDS ORDERED: ACETAMINOPHEN 325 MG TAB PO PRN (14:30)
[2018-09-10] MEDS ORDERED: DIPHENHYDRAMINE 25 MG CAP PO PRN (14:30)
[2018-09-10] MEDS ORDERED: IBUPROFEN 600 MG TAB PO PRN (14:30)
[2018-09-10] MEDS: D5W-0.45 NACL + KCL 20 MEQ 1,000 ML IV SCH (16:45)
[2018-09-10] MEDS: CEFTRIAXONE 1 GM/50 ML (PMX) 50 ML IVPB SCH (18:15)
[2018-09-10] MEDS: KETOROLAC 30 MG INJ IV PRN (19:10)
[2018-09-11] MEDS: D5W-0.45 NACL + KCL 20 MEQ 1,000 ML IV SCH ×3 (00:16→10:16)
[2018-09-11] MEDS: HYDROmorphONE 0.5 MG/0.5 ML SYG IV PRN ×2 (00:53→08:30)
[2018-09-11 02:30] VITALS: BP 128/81; PULSE 73; RESP 19
[2018-09-11] MEDS: KETOROLAC 30 MG INJ IV PRN (06:01)
[2018-09-11] MEDS ORDERED: ENOXAPARIN 40 MG/0.4 ML SYG SC SCH (07:00)
[2018-09-11 07:38] VITALS: BP 124/76; PULSE 80; RESP 16
[2018-09-11] MEDS: FAMOTIDINE 20 MG TAB PO SCH (08:30)
[2018-09-11] MEDS: HEPARIN 5,000 UNIT/1 ML VIAL SC SCH (09:02)
[2018-09-11] MEDS: HYDROCODONE/APAP (5/325) TAB PO PRN (13:39)
[2018-09-11 14:24] VITALS: BP 109/77; PULSE 76; RESP 16
--- NOTE | 2018-09-11 14:43 | PDOCDIS ---
Discharge Instructions CONDITION [id number] Patient Condition: [id number] Stable HOME CARE INSTRUCTIONS: [id number] Special Diet: [id number] carb control ACTIVITY: [id number] Activity Restrictions: [id number] Slowly Increase Activity Rest between Activity Avoid heavy lifting FOLLOW UP/APPOINTMENTS Follow-up Plan Please take your medications as prescribed. Please see your doctor in clinic in the next 1 week. JOSESITO BROOKS Sep 11, 2018 14:43
[2018-09-11] MEDS ORDERED: HYDR-4011 PO (14:44)
[2018-09-11] MEDS ORDERED: CIPR-193 PO (14:47)
--- NOTE | 2018-09-11 14:48 | DS ---
Date/Time of Note Date/Time of Note DATE: 09/11/18 TIME: 14:46 Discharge Summary Admission/Discharge Info Admit Date/Time Sep 09, 2018 at 17:32 Discharge Date/Time Discharge Diagnosis 1. Right upper quadrant pain - again likely secondary to what is most likely a cute cholecystitis -status post laparoscopic cholecystectomy this admission 2. Mild urinary tract infection -UA was positive. Patient Condition: Stable Hx of Present Illness 27-year-old female who was recently diagnosed with gallstones who comes in with right upper quadrant pain. She describes it as 8/10 in intensity. She has also had some nonbilious, nonbloody vomiting and some nausea symptoms as well. No fevers or chills. No upper or lower GI bleeding. No diarrhea or constipation. No headaches or shortness of breath. The patient came to the ER a few days ago for similar symptoms and at that time was diagnosed with gallstones, but no evidence of acute cholecystitis and was sent home with appropriate medications, but again the patient's symptoms became worse in the last 1 day and she decided to come back. When she came in today, she had another gallbladder ultrasound performed this time that shows cholelithiasis with borderline prominent gallbladder wall thickness and a call was made out to the general surgeon to come see the patient. Hospital Course So patient was admitted to medical surgical unit. She was made n.p.o. and given IV fluids and pain control medications. Also antiemetics. She was found with acute cholecystitis. She was seen by general surgery team. She underwent lap scopic cholecystectomy. Afterwards patient tolerated the procedure well and was able to ambulate tolerate diet, vital signs are stable as well. She was also treated for simple UTI, no fevers. After getting clearance from the surgery team, if that is performed today successfully, she will be discharged home today improved condition. See below for full list of discharge medications. Home Meds Active Scripts Hydrocodone/Acetaminophen (Hope 5-325 Tablet) 1 Each Tablet, 1 TAB PO Q6H PRN for PAIN, #15 TAB Prov:JOSESITO BROOKS 09/11/18 Ondansetron (Ondansetron Odt) 4 Mg Tab.rapdis, 4 MG PO Q6H PRN for NAUSEA AND/OR VOMITING, #10 TAB Prov:JANETTE OLIVERA PA-C 09/02/18 Famotidine* (Pepcid*) 20 Mg Tablet, 20 MG PO BID, #20 TAB Prov:JARODJANETTE Mckeon PA-C 09/02/18 Discontinued Scripts Cephalexin* (Keflex*) 500 Mg Capsule, 500 MG PO QID for 7 Days, CAP Prov:JARODJANETTE Mike PAUL 09/02/18 Follow-up Plan Please take your medications as prescribed. Please see your doctor in clinic in the next 1 week. Primary Care Provider Not On Staff Doctor Time spent on discharge: > 30 minutes Pending Labs Laboratory Tests Test 09/11/18 05:38 White Blood Count 12.5 10^3/ul (4.8-10.8) Red Blood Count 3.51 10^6/ul (4.20-5.40) Hemoglobin 11.1 g/dl (12.0-16.0) Hematocrit 33.3 % (37.0-47.0) Mean Corpuscular Volume 94.9 fl (82.0-101.0) Mean Corpuscular Hemoglobin 31.6 pg (29.0-33.0) Mean Corpuscular Hemoglobin Concent 33.3 g/dl (32.0-37.0) Red Cell Distribution Width 13.6 % (11.5-14.5) Platelet Count 356 10^3/UL (140-415) Mean Platelet Volume 9.5 fl (7.4-10.4) Immature Granulocytes % 0.500 % (0.001-0.429) Neutrophils % 77.1 % (39.0-77.0) Lymphocytes % 14.4 % (15.0-51.0) Monocytes % 7.7 % (0.0-11.0) Eosinophils % 0.0 % (0.0-7.0) Basophils % 0.3 % (0.0-2.0) Nucleated Red Blood Cells % 0.0 /100WBC (0.0-0.0) Immature Granulocytes # 0.060 10^3/ul (0.0-0.031) Neutrophils # 9.6 10^3/ul (1.6-7.5) Lymphocytes # 1.8 10^3/ul (0.8-2.9) Monocytes # 1.0 10^3/ul (0.3-0.9) Eosinophils # 0.0 10^3/ul (0.0-0.5) Basophils # 0.0 10^3/ul (0.0-0.1) Nucleated Red Blood Cells # 0.0 10^3/ul (0.0-0.0) Sodium Level 138 mmol/L (135-144) Potassium Level 4.1 mmol/L (3.5-5.1) Chloride Level 108 mmol/L (97-110) Carbon Dioxide Level 25 mmol/L (21-31) Anion Gap 5 (5-13) Blood Urea Nitrogen 5 mg/dl (7-20) Creatinine 0.50 mg/dl (0.44-1.00) Est Glomerular Filtrat Rate mL/min > 60 mL/min (>60) Glucose Level 135 mg/dl (70-220) Calcium Level 8.7 mg/dl (8.4-10.2) JOSESITO BROOKS Sep 11, 2018 14:48
[2018-09-13] MEDS ORDERED: IBUPROFEN 600 MG TAB PO PRN (20:30)
== END 2018-09-11 15:56 | disposition home or self-care (01) | DRG 418 ==
LOC: FTE 13:26 → 2NE 17:32
PROVIDERS: ADMIT Hospitalist; ATTEND Hospitalist
PROC: 0FT44ZZ Resection of Gallbladder, Percutaneous Endoscopic Approach (ICD-10-PCS; principal; 2018-09-10 11:30)
DX: K80.10 Calculus of gallbladder with chronic cholecystitis without obstruction (principal); N39.0 Urinary tract infection, site not specified
CPT/HCPCS: 36415; 76705; 80048; 80053; 80061; 81001; 81025; 83036; 83690; 83735; 84100; 84439; 84443; 85025; 85610; 85730; 88304; 96361; 96365; 96375; J0690; J0696; J1100; J1170; J1644; J1885; J2175; J2250; J2274; J2405; J2543; J2765; J2795; J3010; J3480; J7030